=== PATIENT | female | born 1955 | race Caucasian/White ===

== ENCOUNTER 2023-05-26 07:28 | Outpatient (CLI) | payer MEDICARE, OTHER ==
[2023-05-26] MEDS ORDERED: Iopamidol 300 61% 100 ML VIAL FS ONE (10:20)
== END 2023-05-26 07:29 | disposition home or self-care (01) ==
LOC: CSHCT 07:28
PROVIDERS: ATTEND Internal Medicine
DX: R53.82 Chronic fatigue, unspecified (principal); L29.9 Pruritus, unspecified; R50.9 Fever, unspecified; R53.83 Other fatigue; K76.9 Liver disease, unspecified
CPT/HCPCS: 71270; 74178; 82565; Q9967